=== PATIENT | female | born 1990 ===

== ENCOUNTER 2017-02-24 18:57 | Emergency (ER) | payer OTHER ==
[2017-02-24 19:36] VITALS: BP 128/81; PULSE 68; RESP 16; TEMP 97.6; O2SAT 100
--- NOTE | 2017-02-24 19:50 | C.PDOC ---
History Of Present Illness 26 y/o female with PMH of PE presents requesting dose of coumadin. Pt ran out of coumadin 5 days ago, had levels drawn this morning, INR at 1. Pt states was instructed to take 10 mg today and continue taking 5mg daily. Pt was unable to fill prescription today because pharmacy was closed. Pt currently asymptomatic. Pt has INR checked weekly since August 2016. Denies SOB, leg pain, chest pain or any other complaints. Time Seen by Provider: 02/24/17 19:35 Chief Complaint (Nursing): Med Refill History Per: Patient History/Exam Limitations: no limitations Severity: Mild Reports Recently: Treated By A Physician Recent travel outside of the [place]: No Past Medical History Reviewed: Historical Data, Nursing Documentation, Vital Signs Vital Signs: Last Vital Signs Temp 97.6 F 02/24/17 19:26 Pulse 68 02/24/17 19:26 Resp 16 02/24/17 19:26 BP 128/81 02/24/17 19:26 Pulse Ox 100 02/24/17 20:00 - Medical History PMH: Pulmonary Embolism Family History: States: Unknown Family Hx - Social History Hx Tobacco Use: No (quit 3 months ago) Hx Alcohol Use: Yes Hx Substance Use: No - Immunization History Hx Tetanus Toxoid Vaccination: No Hx Influenza Vaccination: No Hx Pneumococcal Vaccination: No Review Of Systems Except As Marked, All Systems Reviewed And Found Negative. Constitutional: Negative for: Fever Cardiovascular: Negative for: Chest Pain Respiratory: Negative for: Shortness of Breath Musculoskeletal: Negative for: Leg Pain Physical Exam - Physical Exam Appears: Non-toxic, No Acute Distress Skin: Warm, Dry, No Rash Head: Atraumatic, Normacephalic Eye(s): bilateral: Normal Inspection, EOMI Nose: Normal Oral Mucosa: Moist Chest: Symmetrical Cardiovascular: Rhythm Regular, No Murmur Respiratory: Normal Breath Sounds, No Rales, No Rhonchi, No Wheezing Gastrointestinal/Abdominal: Soft, No Tenderness Extremity: Normal ROM, No Calf Tenderness, No Swelling Extremity: Bilateral: Atraumatic Neurological/Psych: Oriented x3, Normal Speech ED Course And Treatment O2 Sat by Pulse Oximetry: 100 (room air) Pulse Ox Interpretation: Normal Progress Note: Previous labs checked, INR 1.0, PT 11.1. Coumadin ordered. Case discussed with Dr Heath, agreed upon plan and treatment. Instructed f/u with PMD for repeat labs. Disposition - Disposition Referrals: Alyssa Lewis MD [Staff Provider] - Disposition: HOME/ ROUTINE Disposition Time: 19:49 Condition: STABLE Additional Instructions: Follow up with your primary medical doctor or clinic in 2-5 days for further evaluation. Take medications as prescribed by your doctor. Return to the emergency department at any time if symptoms persist or worsen. Instructions: Medicine Refill (ED) - Clinical Impression Clinical Impression: Review of medication - PA / ARMATURE COIL WINDER / Resident Statement MD/DO has reviewed & agrees with the documentation as recorded. - Scribe Statement The provider has reviewed the documentation as recorded by the Kayleeibsarah Smith All medical record entries made by the Odalys were at my direction and personally dictated by me. I have reviewed the chart and agree that the record accurately reflects my personal performance of the history, physical exam, medical decision making, and the department course for this patient. I have also personally directed, reviewed, and agree with the discharge instructions and disposition.
== END 2017-02-24 20:27 | disposition home or self-care (01) ==
LOC: C.ER 18:57
DX: Z76.0 Encounter for issue of repeat prescription (principal)

== ENCOUNTER 2017-04-11 18:43 | Emergency (ER) | payer OTHER ==
--- NOTE | 2017-04-11 19:54 | C.PDOC ---
History Of Present Illness 26 y/o female presents to the ED with complaints of crampy left sided abdominal pain which onset today, later headache developed. She is concerned her symptoms are related to previous history of DVT and PE. Pt on coumadin 9 months, discontinued 2 weeks ago. She denies fever, chill, chest pain, SOB, leg pain or swelling or any other complaints. Time Seen by Provider: 04/11/17 19:49 Chief Complaint (Nursing): Abdominal Pain History Per: Patient History/Exam Limitations: no limitations Onset/Duration Of Symptoms: Hrs Current Symptoms Are (Timing): Still Present Severity: Moderate Location Of Pain/Discomfort: RLQ, LLQ Radiation Of Pain To:: None Quality Of Discomfort: Cramping Associated Symptoms: denies: Fever, Chills, Nausea, Vomiting, Diarrhea, Chest Pain Exacerbating Factors: None Alleviating Factors: None Recent travel outside of the [place]: No Past Medical History Reviewed: Historical Data, Nursing Documentation, Vital Signs Vital Signs: Last Vital Signs Temp 98.0 F 04/11/17 21:12 Pulse 64 04/11/17 21:12 Resp 16 04/11/17 21:12 BP 120/70 04/11/17 21:12 Pulse Ox 99 04/11/17 21:12 - Medical History PMH: Pulmonary Embolism Family History: States: Unknown Family Hx - Social History Hx Tobacco Use: No (quit 3 months ago) Hx Alcohol Use: No Hx Substance Use: No - Immunization History Hx Tetanus Toxoid Vaccination: No Hx Influenza Vaccination: No Hx Pneumococcal Vaccination: No Review Of Systems Except As Marked, All Systems Reviewed And Found Negative. Constitutional: Negative for: Fever, Chills Cardiovascular: Negative for: Chest Pain Respiratory: Negative for: Shortness of Breath Gastrointestinal: Positive for: Abdominal Pain. Negative for: Nausea, Vomiting , Diarrhea Musculoskeletal: Negative for: Leg Pain Neurological: Positive for: Headache Physical Exam - Physical Exam Appears: Non-toxic, No Acute Distress, Other (obese) Skin: Warm, Dry, No Rash Head: Atraumatic, Normacephalic Neck: Normal, Normal ROM, Supple Chest: Symmetrical Cardiovascular: Rhythm Regular, No Murmur Respiratory: Normal Breath Sounds, No Rales, No Rhonchi, No Wheezing Gastrointestinal/Abdominal: Soft, No Tenderness, Other (dull to percussion) Extremity: Normal ROM, No Pedal Edema, No Calf Tenderness Extremity: Bilateral: Atraumatic Neurological/Psych: Oriented x3, Normal Speech, Other (odd behavior) ED Course And Treatment - Laboratory Results Result Diagrams: 04/11/17 20:11 04/11/17 20:11 Lab Interpretation: Normal (UA neg, tox neg,) Urine POC: Negative O2 Sat by Pulse Oximetry: 100 (room air) Pulse Ox Interpretation: Normal Reevaluation Time: 20:47 Reassessment Condition: Improved Medical Decision Making Medical Decision Making: constipation, no acute issues Disposition Doctor Will See Patient In The: Office Counseled Patient/Family Regarding: Studies Performed, Diagnosis - Disposition Referrals: Alyssa Lewis MD [Staff Provider] - Disposition: HOME/ ROUTINE Disposition Time: 20:48 Condition: GOOD Additional Instructions: drink a bottle of Mag Citrate now, and re-evaluate your abdominal discomfort after using the bathroom 2-3 times. Continue to eat more fresh fruits and vegetables. Follow-up in our Clinic as needed Test is NEGATIVE Instructions: Constipation (ED), Gas and Bloating (ED) - Clinical Impression Clinical Impression: Colicky LUQ abdominal pain - Scribe Statement The provider has reviewed the documentation as recorded by the Scribe Justin Smith Provider Attestation: All medical record entries made by the Scribe were at my direction and personally dictated by me. I have reviewed the chart and agree that the record accurately reflects my personal performance of the history, physical exam, medical decision making, and the department course for this patient. I have also personally directed, reviewed, and agree with the discharge instructions and disposition.
[2017-04-11] MEDS ORDERED: Sodium Chloride 0.9% 1,000 ML IV ONE (19:55)
[2017-04-11 20:12] LABS: HCG,QUALITATIVE URINE NEGATIVE (NEGATIVE)
[2017-04-11 20:17] LABS: BARBITURATES, UR NEGATIVE (NEGATIVE)
[2017-04-11 20:18] LABS: BENZODIAZEPINES, UR NEGATIVE (NEGATIVE)
[2017-04-11 20:18] LABS: BASO # 0.1 K/uL (0.0-0.2); EOS # 0.2 K/uL (0.0-0.7); EOS % 2.8 % (0.0-4.0); HEMOGLOBIN 13.4 g/dL (11.0-16.0); LYMPH % 22.4 % (20.0-40.0); MEAN CELL VOLUME 90.1 fL (81.0-99.0); MEAN CORPUSCULAR HEMOGLOBIN 30.7 pg (27.0-31.0); MEAN CORPUSCULAR HGB CONC 34.1 g/dL (33.0-37.0); MEAN PLATELET VOLUME 8.2 fL (7.2-11.7); MONO # 0.6 K/uL (0.0-0.8); MONO % 6.9 % (0.0-10.0); NEUT # 5.8 K/uL (1.8-7.0); NEUT % 66.9 % (50.0-75.0); RBC 4.35 Mil/uL (3.80-5.20); RED CELL DISTRIBUTION WIDTH 13.5 % (11.5-14.5); WHITE BLOOD COUNT 8.7 K/uL (4.8-10.8)
[2017-04-11 20:21] LABS: OPIATES, UR NEGATIVE (NEGATIVE)
[2017-04-11 20:22] LABS: PHENCYCLIDINE, UR NEGATIVE (NEGATIVE)
[2017-04-11] MEDS ORDERED: Sodium Chloride 0.9% 1,000 ML ONE (20:28)
[2017-04-11 20:36] LABS: SQUAMOUS EPITHIAL 1 /hpf (0-5); URINE AMORPHOUS SEDIMENT RARE /ul (<OCC); URINE BACTERIA RARE (<OCC); URINE BILIRUBIN NEGATIVE (NEGATIVE); URINE BLOOD NEGATIVE (NEGATIVE); URINE CLARITY Hazy (Clear); URINE COLOR Yellow (YELLOW); URINE GLUCOSE (UA) NORMAL (Normal); URINE LEUKOCYTE ESTERASE NEG Leu/uL (Negative); URINE NITRATE NEGATIVE (NEGATIVE); URINE PROTEIN NEGATIVE (NEGATIVE); URINE UROBILINOGEN NORMAL mg/dL (0.2-1.0)
[2017-04-11 20:36] LABS: ALBUMIN 4.3 g/dL (3.5-5.0)
[2017-04-11 20:38] LABS: GFR AFRICAN-AMERICAN > 60; GFR NON-AFRICAN AMERICAN > 60
[2017-04-11 20:39] LABS: ALB/GLOB RATIO 1.3 (1.0-2.1); ALT/SGPT 10 U/L (9-52); AST/SGOT 41 U/L (14-36); BLOOD UREA NITROGEN 10 mg/dL (7-17); CALCIUM 8.8 mg/dl (8.6-10.4); LIPASE 63 U/L (23-300)
[2017-04-11 21:12] VITALS: BP 120/70; PULSE 64; RESP 16; TEMP 98
[2017-04-11 21:20] VITALS: O2SAT 100
--- NOTE | 2017-04-12 09:49 | RAD ---
Abdomen four views History: Abdominal pain. Comparison: None available. Findings: Mild venous congestion. Heart size within normal limits. Moderate fecal retention in the colon. Relative paucity of small bowel gas. Impression: Moderate fecal retention in the colon.
== END 2017-04-11 21:12 | disposition home or self-care (01) ==
LOC: SUPCPDRO 18:43 → C.ER 18:43
DX: R10.12 Left upper quadrant pain (principal); Z86.711 Personal history of pulmonary embolism; Z86.718 Personal history of other venous thrombosis and embolism
CPT/HCPCS: 74022; 80053; 80320; 80324; 80345; 80346; 80349; 80353; 80358; 80361; 81001; 83690; 83992; 84703; 85025; 96374; 99283; J1885; J7040

== ENCOUNTER 2017-10-05 09:40 | Emergency (ER) | payer MEDICAID, OTHER ==
[2017-10-05] MEDS ORDERED: Sodium Chloride 0.9% 1,000 ML IV ONE (10:15)
[2017-10-05] MEDS ORDERED: Albuterol-Ipratrop 3 mg / 0.5 (3 ml) UD IH SCH (10:15)
[2017-10-05] MEDS ORDERED: Dexamethasone 4 mg/1 ml IVP STA (10:19)
--- NOTE | 2017-10-05 10:35 | C.PDOC ---
History Of Present Illness 26 y/o female with PMHx of Asthma, PE and currently 18 weeks presents to ED with complaints of shortness of breath, wheezing, and coughing for "few days". Patient states she recently came back from [place] and has been using Inhaler frequently with little relief and came to ED for further evaluation. Patient is speaking in full sentences and denies fever, chills, nausea, vomiting or any other complaints at this time. LMP 06/02/17 Time Seen by Provider: 10/05/17 09:53 Chief Complaint (Nursing): Chest Pain History Per: Patient History/Exam Limitations: no limitations Onset/Duration Of Symptoms: Days Current Symptoms Are (Timing): Still Present Severity: Mild Quality: Tightness Associated Symptoms: Dyspnea Exacerbating Factors: Deep Breathing, Exertion Past Medical History Reviewed: Historical Data, Nursing Documentation, Vital Signs Vital Signs: Last Vital Signs Temp 98.2 F 10/05/17 12:00 Pulse 101 H 10/05/17 14:38 Resp 19 10/05/17 14:38 BP 119/79 10/05/17 14:38 Pulse Ox 99 10/05/17 15:47 - Medical History PMH: Pulmonary Embolism Surgical History: No Surg Hx Family History: States: No Known Family Hx - Social History Hx Tobacco Use: No (quit 3 months ago) Hx Alcohol Use: No Hx Substance Use: No - Immunization History Hx Tetanus Toxoid Vaccination: No Hx Influenza Vaccination: No Hx Pneumococcal Vaccination: No Review Of Systems Constitutional: Negative for: Fever, Chills Cardiovascular: Positive for: Chest Pain Respiratory: Positive for: Cough, Shortness of Breath, SOB with Excertion, Wheezing Gastrointestinal: Negative for: Nausea, Vomiting Skin: Negative for: Rash Physical Exam - Physical Exam Appears: Non-toxic, No Acute Distress Skin: Normal Color, Warm, Dry, No Rash Head: Atraumatic, Normacephalic Eye(s): bilateral: Normal Inspection Oral Mucosa: Moist Throat: Normal, No Erythema, No Exudate, No Drooling Neck: Normal ROM, Supple Chest: Symmetrical Cardiovascular: Rhythm Regular Respiratory: No Rales, No Rhonchi, Wheezing (Expiratory bilaterally) Gastrointestinal/Abdominal: No Tenderness, No Guarding, No Rebound, Other ( Gravid abdomen) Back: No CVA Tenderness Extremity: Normal ROM, Capillary Refill (<2 seconds) Neurological/Psych: Oriented x3 Gait: Steady ED Course And Treatment - Laboratory Results Result Diagrams: 10/05/17 10:41 10/05/17 10:41 Lab Interpretation: Normal Urine POC: Positive ECG: Interpreted By Me ECG Rhythm: Sinus Rhythm Rate From EC O2 Sat by Pulse Oximetry: 99 (RA) Pulse Ox Interpretation: Normal - Radiology CXR: Interpreted by Me CXR Interpretation: Yes: No Acute Disease - CT Scan/US No standard instances Other Rad Studies (CT/US): Read By Radiologist, Radiology Report Reviewed CT/US Interpretation: Findings: Visualized portions of the inferior thyroid gland appear unremarkable. The mediastinal and hilar vascular structures appear within normal limits. The heart appears within normal limits of size. There is suboptimal opacification of the pulmonary arteries limiting evaluation for pulmonary embolus. Given this limitation, there are no visible intraluminal filling defects within the central pulmonary arteries to suggest central pulmonary embolism. No focal consolidation. No pleural effusion. No pneumothorax. No suspicious pulmonary nodules measuring greater than 5 mm. Small hiatal hernia/distal esophageal wall thickening. Limited visualized portions of the upper abdomen ; 13 mm probable splenule. No acute osseous abnormality is detected. Impression: There is suboptimal opacification of the pulmonary arteries limiting evaluation for pulmonary embolus. Given this limitation, there are no visible intraluminal filling defects within the central pulmonary arteries to suggest central pulmonary embolism. Progress Note: Treated with IVF NSS, decadron and duonebs x 3. D-Dimer > 400. CTA ordered- neg for DVT. On re-evaluation lungs clear, feeling better. Discharged in stable condition Reassessment Condition: Improved Medical Decision Making Medical Decision Making: Plan: Blood work, CXR, Neb treatment, Dimer ordered Risks and benefits of CTA explained to patient who agrees Progress: D-Dimer Elevated, will send patient for CTA study and patient aware of risks and benefits and agrees with CT Disposition Counseled Patient/Family Regarding: Studies Performed, Diagnosis, Need For Followup, Rx Given - Disposition Referrals: [facility] [Outside] [facility] [employer] [facility] [Outside] Disposition: HOME/ ROUTINE Disposition Time: 15:30 Condition: STABLE Additional Instructions: Follow up with travel nurse resident Follow up with medical clinic Prescriptions: Albuterol HFA [Ventolin HFA 90 mcg/actuation (8 g)] 2 puff IH [id number] PRN #1 puff PRN Reason: Shortness Of Breath Instructions: Asthma (ED), How to Use a Nebulizer (ED), Dyspnea (ED) Forms: [employer] (Sinhala) - POA Present On Arrival: None - Clinical Impression Clinical Impression: Chest pain, Asthma, Respiratory tract infection - PA / HIDE SELECTOR / Resident Statement MD/DO has reviewed & agrees with the documentation as recorded. - Scribe Statement The provider has reviewed the documentation as recorded by the Kayleeibsarah Aguila All medical record entries made by the Odalys were at my direction and personally dictated by me. I have reviewed the chart and agree that the record accurately reflects my personal performance of the history, physical exam, medical decision making, and the department course for this patient. I have also personally directed, reviewed, and agree with the discharge instructions and disposition.
[2017-10-05 10:45] LABS: BASO # 0.1 K/uL (0.0-0.2); EOS # 0.4 K/uL (0.0-0.7); EOS % 3.4 % (0.0-4.0); HEMOGLOBIN 11.6 g/dL (11.0-16.0); LYMPH # 1.6 K/uL (1.0-4.3); LYMPH % 15.4 % (20.0-40.0); MEAN CELL VOLUME 90.2 fL (81.0-99.0); MEAN CORPUSCULAR HEMOGLOBIN 31.1 pg (27.0-31.0); MEAN CORPUSCULAR HGB CONC 34.4 g/dL (33.0-37.0); MEAN PLATELET VOLUME 7.8 fL (7.2-11.7); MONO # 0.5 K/uL (0.0-0.8); MONO % 5.1 % (0.0-10.0); NEUT # 7.7 K/uL (1.8-7.0); NEUT % 75.1 % (50.0-75.0); RBC 3.73 Mil/uL (3.80-5.20); RED CELL DISTRIBUTION WIDTH 13.5 % (11.5-14.5); WHITE BLOOD COUNT 10.3 K/uL (4.8-10.8)
[2017-10-05] MEDS ORDERED: Sodium Chloride 0.9% 1,000 ML ONE (10:47)
[2017-10-05] MEDS ORDERED: Dexamethasone 4 mg/1 ml ONE (10:47)
[2017-10-05] MEDS ORDERED: Albuterol-Ipratrop 3 mg / 0.5 (3 ml) UD ONE (10:47)
[2017-10-05 10:59] LABS: ALB/GLOB RATIO 1.2 (1.0-2.1); ALBUMIN 3.5 g/dL (3.5-5.0); ALT/SGPT 26 U/L (9-52); AST/SGOT 17 U/L (14-36); BLOOD UREA NITROGEN 7 mg/dL (7-17); CALCIUM 8.2 mg/dl (8.6-10.4); GFR AFRICAN-AMERICAN > 60; GFR NON-AFRICAN AMERICAN > 60
--- NOTE | 2017-10-05 11:03 | RAD ---
HISTORY: SOB COMPARISON: Chest x-ray performed 10/08/16 TECHNIQUE: Chest, one view. FINDINGS: Examination limited by habitus. LUNGS: No focal consolidation. Please note that chest x-ray has limited sensitivity for the detection of pulmonary masses. PLEURA: No significant pleural effusion identified. No definite pneumothorax . CARDIOVASCULAR: The cardiomediastinal silhouette appears within normal limits of size. OSSEOUS STRUCTURES: No acute osseous abnormality identified. VISUALIZED UPPER ABDOMEN: Unremarkable. OTHER FINDINGS: None. IMPRESSION: No focal consolidation, significant pleural effusion, or definite pneumothorax identified.
[2017-10-05 12:24] LABS: SQUAMOUS EPITHIAL < 1 /hpf (0-5); URINE BILIRUBIN NEGATIVE (NEGATIVE); URINE BLOOD NEGATIVE (NEGATIVE); URINE CLARITY Clear (Clear); URINE COLOR Straw (YELLOW); URINE GLUCOSE (UA) NORMAL (Normal); URINE LEUKOCYTE ESTERASE NEG Leu/uL (Negative); URINE NITRATE NEGATIVE (NEGATIVE); URINE PROTEIN NEGATIVE (NEGATIVE); URINE UROBILINOGEN NORMAL mg/dL (0.2-1.0)
[2017-10-05 12:26] LABS: HCG,QUALITATIVE URINE POSITIVE (NEGATIVE)
[2017-10-05] MEDS ORDERED: Iodixanol 320 MG/ML 100 ML BOTTLE IV ONE (12:43)
[2017-10-05 14:38] VITALS: BP 119/79; PULSE 101; RESP 19
--- NOTE | 2017-10-05 14:52 | CT ---
CTA chest PE protocol Indication: dyspnea, H/O PE, 18 weeks , patient was double shielded. Technique: Contiguous axial images were obtained through the chest with intravenous contrast enhancement. Sagittal and coronal reconstructions were generated and reviewed. This CT exam was performed using 1 or more of the falling dose reduction techniques: Automated exposure control, adjustment of the MAA and/or kV according to patient size, and/or use of iterative reconstruction technique. Consent is noted in the chart and was obtained by ELOY Perry. IV Contrast: 68 mL Visipaque IV Radiation dose (DLP): 403.03 MGy-cm. Comparison: Chest x-ray performed 10/05/17 Findings: Visualized portions of the inferior thyroid gland appear unremarkable. The mediastinal and hilar vascular structures appear within normal limits. The heart appears within normal limits of size. There is suboptimal opacification of the pulmonary arteries limiting evaluation for pulmonary embolus. Given this limitation, there are no visible intraluminal filling defects within the central pulmonary arteries to suggest central pulmonary embolism. No focal consolidation. No pleural effusion. No pneumothorax. No suspicious pulmonary nodules measuring greater than 5 mm. Small hiatal hernia/distal esophageal wall thickening. Limited visualized portions of the upper abdomen ; 13 mm probable splenule. No acute osseous abnormality is detected. Impression: There is suboptimal opacification of the pulmonary arteries limiting evaluation for pulmonary embolus. Given this limitation, there are no visible intraluminal filling defects within the central pulmonary arteries to suggest central pulmonary embolism.
[2017-10-05 14:56] VITALS: TEMP 98.2
[2017-10-05 15:02] VITALS: O2SAT 99
--- NOTE | 2017-10-06 12:05 | CARD ---
APPROVED REPORT EKG Measurement Heart [id number] <Conclusion> Normal sinus rhythm Cannot rule out Anterior infarct, age undetermined Abnormal ECG
== END 2017-10-05 16:06 | disposition home or self-care (01) ==
LOC: C.ER 09:40
DX: J45.909 Unspecified asthma, uncomplicated (principal); R07.9 Chest pain, unspecified; J98.8 Other specified respiratory disorders
CPT/HCPCS: 71045; 71275; 80053; 81001; 84703; 85025; 85378; 93005; 96361; 96374; 99284; J1100; J7040; Q9967

== ENCOUNTER 2018-08-23 17:00 | Emergency (ER) | payer SELFPAY ==
[2018-08-23 17:00] VITALS: BMI 34.5
[2018-08-23 17:09] VITALS: BP 122/83; PULSE 75; TEMP 97.6; O2SAT 99
[2018-08-23 18:05] LABS: HCG,QUALITATIVE URINE NEGATIVE (NEGATIVE)
[2018-08-23 18:06] LABS: SQUAMOUS EPITHIAL 2 /hpf (0-5); URINE BACTERIA RARE (<OCC); URINE BILIRUBIN NEGATIVE (NEGATIVE); URINE BLOOD NEGATIVE (NEGATIVE); URINE CLARITY Clear (Clear); URINE COLOR Yellow (YELLOW); URINE GLUCOSE (UA) NORMAL (Normal); URINE LEUKOCYTE ESTERASE NEG Leu/uL (Negative); URINE PROTEIN NEGATIVE (NEGATIVE); URINE UROBILINOGEN NORMAL mg/dL (0.2-1.0)
[2018-08-23] MEDS ORDERED: Lidocaine 5% Patch TD STA (18:29)
[2018-08-23] MEDS ORDERED: Lidocaine 5% Patch TD ONE (18:44)
--- NOTE | 2018-08-23 19:38 | C.PDOC ---
History Of Present Illness 27 year old female presents to the ED for evaluation of right flank pain which began 3 days ago. Patient states the pain radiates down her right leg and is worse with movement and with bending forward. Patient states she has a history of kidney infection and states her current symptoms feel similar to prior. Patient denies fever, chills, urinary/bowel incontinence, extremity numbness/weakness, trauma. Time Seen by Provider: 08/23/18 17:21 Chief Complaint (Nursing): Back Pain History Per: Patient History/Exam Limitations: no limitations Onset/Duration Of Symptoms: Days (3) Current Symptoms Are (Timing): Still Present Quality Of Discomfort: "Pain" Associated Symptoms: denies: New Weakness, New Numbness Additional History Per: Patient Past Medical History Reviewed: Historical Data, Nursing Documentation, Vital Signs Vital Signs: Last Vital Signs Temp 97.6 F 08/23/18 17:03 Pulse 75 08/23/18 17:03 Resp 16 08/23/18 17:03 BP 122/83 08/23/18 17:03 Pulse Ox 99 08/23/18 17:03 - Medical History PMH: Pulmonary Embolism Surgical History: No Surg Hx Family History: States: Unknown Family Hx - Social History Hx Tobacco Use: No (quit 3 months ago) Hx Alcohol Use: No Hx Substance Use: No - Immunization History Hx Tetanus Toxoid Vaccination: No Hx Influenza Vaccination: No Hx Pneumococcal Vaccination: No Review Of Systems Constitutional: Negative for: Fever, Chills Genitourinary: Negative for: Incontinence Musculoskeletal: Positive for: Other (right flank pain ) Neurological: Negative for: Weakness, Numbness Physical Exam - Physical Exam Appears: Non-toxic, No Acute Distress Skin: Normal Color, Warm, Dry Head: Atraumatic, Normacephalic Eye(s): bilateral: Normal Inspection Oral Mucosa: Moist Neck: Supple Chest: Symmetrical, No Deformity, No Tenderness Cardiovascular: Rhythm Regular Respiratory: Normal Breath Sounds Gastrointestinal/Abdominal: Soft, No Tenderness, No Guarding, No Rebound Back: Paraspinal Tenderness (right-sided, lumbar ) Extremity: Normal ROM, Capillary Refill (less than 2 seconds ) Neurological/Psych: Oriented x3, Normal Speech, Normal Cognition ED Course And Treatment O2 Sat by Pulse Oximetry: 99 (on RA) Pulse Ox Interpretation: Normal - CT Scan/US CT A/P Other Rad Studies (CT/US): Interpreted By Me, Read By Radiologist, Radiology Report Reviewed CT/US Interpretation: EXAM: CT Abdomen without IV contrast. CLINICAL HISTORY: RLQ PAIN. TECHNIQUE: Axial computed tomography images of the abdomen and pelvis without intravenous contrast. 0.00 mGy-cm. CONTRAST: Without. COMPARISON: None provided. FINDINGS: LUNG BASES: The lung bases appear clear. No pleural effusions are seen. LIVER: Unremarkable. GALLBLADDER AND BILE DUCTS: The gallbladder appears within normal limits. No radioopaque gallstones are seen. No biliary ductal dilatation is evident. PANCREAS: Unremarkable. SPLEEN: Unremarkable. ADRENAL GLANDS: Unremarkable. KIDNEYS, URETERS, AND BLADDER: There are several tiny approximately 3-4 mm calculi scattered throughout the right kidney. There is no mass or obstruction involving either kidney. No calculus within the left kidney. Neither ureter appears dilated. STOMACH AND BOWEL: Unremarkable appearance of the stomach and bowel. No evidence of bowel obstruction. No evidence suggesting enteritis or colitis. APPENDIX: No evidence of acute appendicitis on CT examination. PERITONEUM: No free fluid. No free air. LYMPH NODES: No lymphadenopathy is evident. VASCULATURE: No evidence of abdominal aortic aneurysm. BONES: No aggressive appearing osseous lesion. No acute osseous pathology evident. IMPRESSION: Several tiny calculi measuring approximately 3-4 mm scattered within the right kidney. No evidence of urinary obstruction on the current study. If symptoms persist correlation with a contrast enhanced study may be considered. Medical Decision Making Medical Decision Making: Progress: Bloodwork, urinalysis, CT A/P ordered and reviewed. Tylenol PO, Toradol IM, and Lidoderm TD administered. On re-exam, the patient reports improvement of symptoms. Lungs are CTA, heart is RRR, abdomen is soft, non-tender and tolerating PO well. Ambulatory in the ED with steady. Follow up with the medical doctor within 1-2 days. Return if worsened. Disposition - Disposition Referrals: Jake Hyman MD [Non-Staff] - [facility] [Outside] Disposition: HOME/ ROUTINE Disposition Time: 19:58 Condition: STABLE Additional Instructions: Follow up with the medical doctor within 1-2 days. Return if worsened. Prescriptions: Acetaminophen [Tylenol] 325 mg PO Q6 PRN #30 tab PRN Reason: Pain, Mild (1-3) Ibuprofen [Motrin] 600 mg PO TID #21 tab Lidocaine 5% [Lidoderm] 1 each TP DAILY #10 patch Instructions: Low Back Pain in Adults Forms: [facility] (Croatian), Work Excuse - Clinical Impression Clinical Impression: Low back pain - PA / EXTENSION WORKER / Resident Statement MD/DO has reviewed & agrees with the documentation as recorded. - Scribe Statement The provider has reviewed the documentation as recorded by the Scribe (Sia Armando) All medical record entries made by the Scribe were at my direction and personally dictated by me. I have reviewed the chart and agree that the record accurately reflects my personal performance of the history, physical exam, medical decision making, and the department course for this patient. I have also personally directed, reviewed, and agree with the discharge instructions and disposition.
[2018-08-23 20:35] VITALS: RESP 20
--- NOTE | 2018-08-24 10:22 | CT ---
Date of service: 08/23/2018 PROCEDURE: CT Abdomen and Pelvis without intravenous contrast HISTORY: R flank pain, back pain, r/o ston COMPARISON: 08/20/2016. TECHNIQUE: CT scan of the abdomen and pelvis was performed without administration of intravenous contrast. Oral contrast was not administered. Coronal and sagittal reformatted images were obtained. . Radiation dose: Total exam DLP = 779.84 mGy-cm. This CT exam was performed using one or more of the following dose reduction techniques: Automated exposure control, adjustment of the mA and/or kV according to patient size, and/or use of iterative reconstruction technique. FINDINGS: LOWER THORAX: The visualized lungs are clear. LIVER: Normal in size. No intrahepatic ductal dilatation. GALLBLADDER AND BILE DUCTS: No calcified gallstones. No biliary dilatation PANCREAS: Normal in size. No ductal dilatation. SPLEEN: Normal in size. ADRENALS: Normal in size. No discrete nodule. KIDNEYS AND URETERS: Normal in size. There are punctate nonobstructing stones in the right kidney. There is mild fullness in the right collecting system. No left nephrolithiasis or hydronephrosis. No hydronephrosis. VASCULATURE: No aortic aneurysm. No aortic atherosclerotic calcification or mural plaque present. BOWEL: The small bowel loops are normal in caliber. The colon is normal in size. No bowel dilatation or wall thickening. No bowel obstruction. APPENDIX: Normal appendix. PERITONEUM: No free fluid. No free air. LYMPH NODES: No enlarged lymph nodes. BLADDER: Well distended and grossly normal in appearance. REPRODUCTIVE: The uterus is normal in size BONES: No acute fracture. OTHER FINDINGS: None. IMPRESSION: Punctate nonobstructing stones in the right kidney and mild fullness in the right collecting system. No obstructive uropathy. A preliminary report was provided by [email or web address].
== END 2018-08-23 20:34 | disposition home or self-care (01) ==
LOC: C.ER 17:00
DX: M54.5 Low back pain (principal)
CPT/HCPCS: 74176; 81001; 84703; 87086; 96372; 99284; J1885